=== PATIENT | female | born 1940 | race Caucasian/White ===

== ENCOUNTER 2022-12-06 10:21 | Outpatient (OUT) | payer MEDICARE, SELFPAY ==
--- NOTE | 2022-12-06 10:51 | XR_ITS ---
The [address] [address] Patient Name: STACIA MCMAHON MRN: [id number] date: 1940 Sex: F Assigned Patient Location: LAB Current Patient Location: LAB Accession/Order Number: [id number] Exam Date: 12/06/2022 11:15 Report Date: 12/06/2022 16:05 At the request of: NAUN HAYWOOD Procedure: XR DEXA axial skeleton DEXA bone density study CLINICAL: 82-year-old female. Evaluate bone mineral density. The bone density study was assessed by dual-energy x-ray absorptiometry. Areas examined in AP projection. The test results are expressed in T-Score, which is used for diagnosis for osteoporosis, and reflects the standard deviations from the mean peak bone mineral density in young adults. Additional information regarding the Z-Score reflects the standard deviations from the mean peak bone mineral density for age- and gender-matched subjects. Lumbar Spine (L1-L4): BMD (gm/cm2): 1.455 T-Score: 2.3 Left Forearm (radius 33%): BMD (gm/cm2): 0.440 T-Score: -3.8 IMPRESSION: 1. Bone mineral density by WHO criteria: Osteoporosis. Fracture risk high. REFERENCE: In postmenopausal women and males 50 or over, comparison of the measured bone mineral density with the average value in young normal subjects (the T-Score) has been found to be useful in assessing fracture risk. Fracture risk approximately doubles for each 1.0 standard deviation (SD) that the individuals hip or spine bone mineral density is below the average value of young normal subjects. The World Health Organization (WHO) has provided the following definitions: 1. Normal: T-Score within one standard deviation of young adult mean value (T-Score at or above -1.0). 2. Osteopenia (low bone mass): T-Score more than one standard deviation below the young adult mean but less than 2.5 standard deviations below the young adult mean (T-Score between -1.0 and -2.5). 3. Osteoporosis: T-Score at or more than 2.5 standard deviations below the young adult mean (T-Score at or less than -2.5). 4. Severe Osteoporosis (established osteoporosis): T-Score more than 2.5 standard deviations below young adult and one or more fragility fracture (T-Score less than -2.5 plus fragility fractures). Electronically authenticated by: ROSY OROZCO Date: 12/06/2022 16:05
--- NOTE | 2022-12-06 10:51 | MM_ITS ---
Patient: STACIA MMCAHON Exam Date: 12/06/2022 : 1940 Gender:F Ordering : NAUN HAYWOOD [facility] Admission #: [id number] Family : Order #: [id number] CLICK HERE TO VIEW EXAM RADIOLOGY REPORT PROCEDURE: MM TOMOSYNTHESIS SCREENING BI COMPARISON: MAMMO SCREEN DIG SHAUN, 02/28/2012. MG MAMM SHAUN DIAG W CAD, 08/26/2019. INDICATIONS: Screening mammogram Z12.31 Calculator Name NCI Breast Cancer Risk Assessment Tool 5 Year Breast Cancer Risk Not Reported. Lifetime Breast Cancer Risk Not Reported. Personal Breast Cancer No Personal Ovarian Cancer No Treatments None Family Cancers None LOCATION: The [facility] BREAST COMPOSITION: Scattered areas fibroglandular density. FINDINGS: DIAGNOSTIC CATEGORY 2--BENIGN FINDING. NO CHANGE FROM COMPARISON. Scattered benign-appearing vascular, linear and micro calcifications are present. RIGHT BREAST: No significant suspicious finding. LEFT BREAST: No significant suspicious finding. RECOMMENDATIONS: ROUTINE MAMMOGRAM AND CLINICAL EVALUATION IN 12 MONTHS. PLEASE NOTE: A NORMAL MAMMOGRAM DOES NOT EXCLUDE THE POSSIBILITY OF BREAST CANCER. A CLINICALLY SUSPICIOUS PALPABLE LUMP SHOULD BE BIOPSIED. Dictated by: Harjinder Castanon MD on 12/06/2022 at 15:12 Approved by: Harjinder Castanon MD on 12/06/2022 at 15:33
[2022-12-06 11:01] LABS: Estimated Average Glucose 103 mg/dL; Glycohemoglobin A1C 5.2 % (4.5-6.2)
[2022-12-06 11:20] LABS: Basophils Percent Auto 0.8 % (0.2-2.0); Eosinophils Absolute Auto 0.2 10^3/uL (0.0-0.7); Eosinophils Percent Auto 3.2 % (0.9-7.0); Hematocrit 38.9 % (36.0-48.0); Hemoglobin 13.1 g/dL (12.0-16.0); Immature Granulocytes Abs Auto 0.02 10^3/uL (0.00-0.03); Immature Granulocytes Pct Auto 0.4 % (0.0-0.5); Lymphocytes Absolute Auto 1.3 10^3/uL (1.2-3.8); Lymphocytes Percent Auto 24.6 % (20.5-60.0); Mean Corpuscular HGB Conc 33.7 g/dL (29.9-35.2); Mean Corpuscular Hemoglobin 31.6 pg (26.7-34.0); Mean Corpuscular Volume 93.7 fL (81.0-99.0); Mean Platelet Volume 9.5 fL (9.5-13.5); Monocytes Absolute Auto 0.4 10^3/uL (0.3-0.8); Monocytes Percent Auto 7.7 % (1.7-12.0); Neutrophils Absolute Auto 3.4 10^3/uL (1.4-6.5); Neutrophils Percent Auto 63.3 % (43.0-75.0); Platelet Count 258 10^3/uL (150-450); Red Blood Count 4.15 10^6/uL (4.20-5.40); Red Cell Distribution Width 11.9 % (11.0-15.0); White Blood Count 5.3 10^3/uL (4.0-11.0)
[2022-12-06 12:43] LABS: Alanine Aminotransferase 20 U/L (14-59); Alkaline Phosphatase 60 U/L (46-116); Anion Gap 12.8; Aspartate Amino Transferase 15 U/L (15-37); BUN Creatinine Ratio 28.2; Bilirubin Total 0.5 mg/dL (0.2-1.0); Calcium 9.3 mg/dL (8.5-10.1); Carbon Dioxide 26.8 mmol/L (21.0-32.0); Chloride 105 mmol/L (98-107); Estimated GFR (African America >60 (>=60); Estimated GFR (Non-African Ame >60 (>=60); Glucose 99 mg/dL (74-106); Potassium 4.6 mmol/L (3.5-5.1); Sodium 140 mmol/L (136-145); Triglycerides 34 mg/dL (<=150)
[2022-12-06 12:44] LABS: Chol HDL Ratio 2.1; Cholesterol 163 mg/dL (<=200); Free Thyroxine Index 1.84 (1.30-4.50); HDL Cholesterol 76 mg/dL (40-60); Thyroid Stimulating Hormone 3.789 uIU/mL (0.358-3.740); VLDL CHOLESTEROL 6.8 mg/dL
[2022-12-07 11:09] LABS: Insulin 8.9 uIU/mL (2.6-24.9)
== END 2022-12-06 10:22 ==
LOC: LAB 10:21
PROVIDERS: PCP Nurse Practitioner Family; Visit Provider Nurse Practitioner Family
DX: R03.0 Elevated blood-pressure reading, without diagnosis of hypertension (principal); R73.09 Other abnormal glucose; D64.9 Anemia, unspecified; E55.9 Vitamin D deficiency, unspecified; Z12.31 Encounter for screening mammogram for malignant neoplasm of breast; M85.80 Other specified disorders of bone density and structure, unspecified site; M81.0 Age-related osteoporosis without current pathological fracture
CPT/HCPCS: 36415; 77063; 77067; 77080; 80053; 80061; 82306; 83036; 83525; 83540; 84436; 84443; 84479; 85025

== ENCOUNTER 2023-09-17 14:25 | Outpatient (OUT) | payer MEDICARE, SELFPAY ==
--- NOTE | 2023-09-17 | XR_ITS ---
The [place] [id number] Patient Name: STACIA MCMAHON MRN: [id number] date: 1940 Sex: F Assigned Patient Location: Current Patient Location: Accession/Order Number: [id number] Exam Date: 09/17/2023 15:05 Report Date: 09/19/2023 05:47 At the request of: SELVIN BURGESS Procedure: XR foot SHAUN min 3V PROCEDURE: XR foot SHAUN min 3V HISTORY: BILATERAL TOE PAIN COMPARISON: None. FINDINGS: BONES:Multifocal degenerative joint disease predominantly involving the interphalangeal joints, greatest at the first toe interphalangeal joint bilaterally. No fracture, dislocation, bone lesion. Prominent degenerative enthesopathic spurring of the calcaneus. Flattening of plantar arch bilaterally. SOFT TISSUES:No visible soft tissue swelling. EFFUSION:None visible. OTHER: Negative. XR/XR foot SHAUN min 3V IMPRESSION: 1. Multifocal moderate degenerative joint disease bilaterally favoring osteoarthritis. Electronically authenticated by: SEJAL JACQUES Date: 09/19/2023 05:47
== END 2023-09-17 14:26 | disposition home or self-care (01) ==
LOC: EC 14:26
PROVIDERS: PCP Nurse Practitioner Family; Visit Provider Podiatrist Foot & Ankle Surgery
DX: M20.41 Other hammer toe(s) (acquired), right foot (principal); M20.42 Other hammer toe(s) (acquired), left foot; M19.072 Primary osteoarthritis, left ankle and foot; M19.071 Primary osteoarthritis, right ankle and foot
CPT/HCPCS: 73630

== ENCOUNTER 2023-12-09 10:07 | Outpatient (OUT) | payer MEDICARE, SELFPAY ==
--- NOTE | 2023-12-09 10:13 | MM_ITS ---
Patient Name: STACIA MCMAHON MR#: [id number] : 1940 Exam Date: 12/09/2023 Ordering Doctor: NAUN HAYWOOD CNP RADIOLOGY REPORT PROCEDURE: MM TOMOSYNTHESIS SCREENING BI COMPARISON: MM TOMOSYNTHESIS SCREENING BI, 12/06/2022. MG MAMM SHAUN DIAG W CAD, 08/26/2019. INDICATIONS: Screening mammography Calculator Name NCI Breast Cancer Risk Assessment Tool 5 Year Breast Cancer Risk Not Reported. Lifetime Breast Cancer Risk Not Reported. Personal Breast Cancer No Personal Ovarian Cancer No Treatments None Family Cancers None LOCATION: The [facility] BREAST COMPOSITION: There are scattered areas of fibroglandular density. FINDINGS: DIAGNOSTIC CATEGORY 2--BENIGN FINDING: RIGHT BREAST: No significant suspicious finding. Scattered benign-appearing calcifications are present. No significant change has occurred. LEFT BREAST: No significant suspicious finding. Scattered benign-appearing calcifications are present. Scattered benign-appearing nodules are present. No significant change has occurred. RECOMMENDATIONS: ROUTINE MAMMOGRAM AND CLINICAL EVALUATION IN 12 MONTHS. PLEASE NOTE: A NORMAL MAMMOGRAM DOES NOT EXCLUDE THE POSSIBILITY OF BREAST CANCER. A CLINICALLY SUSPICIOUS PALPABLE LUMP SHOULD BE BIOPSIED. Dictated by: Ahmet Smith M.D. on 12/12/2023 at 08:03 Approved by: Ahmet Smith M.D. on 12/12/2023 at 08:10
== END 2023-12-09 10:08 | disposition home or self-care (01) ==
LOC: MAMMO 10:07
PROVIDERS: PCP Nurse Practitioner Family; Visit Provider Nurse Practitioner Family
DX: Z12.31 Encounter for screening mammogram for malignant neoplasm of breast (principal)
CPT/HCPCS: 77063; 77067

== ENCOUNTER 2024-12-16 10:43 | Outpatient (OUT) | payer MEDICARE, SELFPAY ==
--- NOTE | 2024-12-16 10:45 | MM_ITS ---
Patient Name: STACIA MCMAHON MR#: [id number] : 1940 Exam Date: 12/16/2024 Ordering Doctor: NAUN HAYWOOD CNP RADIOLOGY REPORT PROCEDURE: MM TOMOSYNTHESIS SCREENING BI COMPARISON: MM TOMOSYNTHESIS SCREENING BI, 12/09/2023. MM TOMOSYNTHESIS SCREENING BI, 12/06/2022. MG MAMM SHAUN DIAG W CAD, 08/26/2019. INDICATIONS: Screening Calculator Name NCI Breast Cancer Risk Assessment Tool 5 Year Breast Cancer Risk Not Reported. Lifetime Breast Cancer Risk Not Reported. Personal Breast Cancer No Personal Ovarian Cancer No Treatments None Family Cancers None LOCATION: The [facility] BREAST COMPOSITION: There are scattered areas of fibroglandular density. FINDINGS: DIAGNOSTIC CATEGORY 1--NEGATIVE. RIGHT BREAST: No significant suspicious finding. LEFT BREAST: No significant suspicious finding. RECOMMENDATIONS: ROUTINE MAMMOGRAM AND CLINICAL EVALUATION IN 12 MONTHS. PLEASE NOTE: A NORMAL MAMMOGRAM DOES NOT EXCLUDE THE POSSIBILITY OF BREAST CANCER. A CLINICALLY SUSPICIOUS PALPABLE LUMP SHOULD BE BIOPSIED. Dictated by: Ochoa Pendleton DO on 12/16/2024 at 15:50 Approved by: Ochoa Pendleton DO on 12/16/2024 at 15:52
--- OUTSIDE RECORDS SUMMARY | 2024-12-16 10:46 | XMS_ITS | Referral Summary ---
Author Organization The [facility] Address [address] [place] [address] Care Team Providers Care Maintenance Man Name Role Phone Unavailable Primary Care Provider Unavailabl e Social History Tobacco Use Types Packs/Day Years Used Date Smoking Tobacco: Never Assessed Comments Unknown Sex and Gender Information Value Date Recorded Sex Assigned at Not on file Legal Sex Female 9:38 PM EDT Gender Identity Not on file Sexual Orientation Not on file Last Filed Vital Signs Vital Sign Reading Time Taken Comments Blood Pressure 136/67 06/18/2019 3:47 PM EST Pulse - - Temperature - - Respiratory Rate - - Oxygen Saturation 96% 06/18/2019 3:46 PM EST Inhaled Oxygen Concentration - - Weight 81.6 kg (180 lb) 06/18/2019 3:46 PM EST Height 167.6 cm (5' 6 ) 06/18/2019 3:36 PM EST Body Mass Index 29.05 06/18/2019 3:36 PM EST Plan of Treatment Not on file
--- OUTSIDE RECORDS SUMMARY | 2024-12-16 10:46 | XMS_ITS | Clinical Summary ---
Author Organization The [facility] Address [address] [place] [address] Care Team Providers Care Assembler Equipment Name Role Phone Unavailable Primary Care Provider [...]
--- OUTSIDE RECORDS SUMMARY | 2024-12-16 10:46 | XMS_ITS | Clinical Summary ---
Author Organization [facility] Address [id number] [address] [place] [address] Care Team Providers Care Outside Laborer Name Role Phone Unavailable Primary Care Provider Unavailabl e Social History Tobacco Use Types Packs/Day Years Used Date Smoking Tobacco: Never Assessed Childcare Answer Date Recorded Childcare Unknown 12/03/2018 Employment Answer Date Recorded Employment Unknown 12/03/2018 Comments Unknown Sex and Gender Information Value Date Recorded Sex Assigned at Not on file Legal Sex Female 3:22 PM EDT Gender Identity Not on file Sexual Orientation Not on file Plan of Treatment Not on file Medical Devices Not on file
== END 2024-12-16 10:44 | disposition home or self-care (01) ==
LOC: MAMMO 10:43
PROVIDERS: PCP Nurse Practitioner Family; Visit Provider Nurse Practitioner Family
DX: Z12.31 Encounter for screening mammogram for malignant neoplasm of breast (principal)
CPT/HCPCS: 77063; 77067